=== PATIENT | female | born 1950 | race Caucasian/White ===

== ENCOUNTER 2018-12-03 14:53 | Emergency (ER) | payer OTHER ==
[~2018-12-03] VITALS: Ht 172.7 cm; Wt 86.2 kg
[2018-12-03] MEDS ORDERED: COZAAR50 MG (15:14)
== END 2018-12-03 19:59 | disposition home or self-care (01) ==
LOC: ER 14:53
DX: N39.0 Urinary tract infection, site not specified (principal)

== ENCOUNTER 2019-03-07 13:10 | Outpatient (CLI) | payer OTHER ==
[~2019-03-07 13:10] MED LIST: COZAAR50 MG
== END 2019-03-07 13:18 | disposition home or self-care (01) ==
LOC: MRI 13:10
DX: S83.203A Other tear of unspecified meniscus, current injury, right knee, initial encounter (principal)
CPT/HCPCS: 73721

== ENCOUNTER 2021-09-09 15:30 | Outpatient (CLI) | payer OTHER | END 2021-09-09 15:45 | disposition home or self-care (01) | LOC: PPH VACUNA 15:30 | PROVIDERS: ATTEND Emergency Medicine Pediatric Emergency Medicine | DX: Z23 Encounter for immunization (principal) ==

== ENCOUNTER 2024-11-04 20:39 | Emergency (ER) | payer OTHER ==
[~2024-11-04] VITALS: Ht 170.2 cm; Wt 81.6 kg
[2024-11-04] MEDS ORDERED: ONDANSETRON HCL 2 MG/ML VIAL ONE (21:29)
[2024-11-04] MEDS ORDERED: FAMOTIDINE/PF 20 MG/2 ML VIAL ONE (21:29)
[2024-11-04] MEDS ORDERED: 0.9 % SODIUM CHLORIDE 1,000 ML IV SCH (21:30)
[2024-11-04] MEDS ORDERED: FAMOTIDINE/PF 20 MG/2 ML VIAL IV PUSH ONE (21:30)
[2024-11-04] MEDS ORDERED: ONDANSETRON HCL 2 MG/ML VIAL IV ONE (21:30)
[2024-11-04 21:59] LABS: HEMOGLOBIN 13.3 g/dL (12.0-15.00); MEAN CELL VOLUME 90.8 fL (80.00-100.00); MEAN CORPUSCULAR HGB CONC 34.1 g/dl (32.0-36.0); PLATELET COUNT 247 K/uL (150-450); RED CELL DISTRIBUTION WIDTH 13.7 % (11.5-14.5)
[2024-11-04 22:25] LABS: BILIRUBIN TOTAL 0.67 mg/dL (0.3-1.2); CALCIUM 9.6 mg/dL (8.5-10.1); CREATININE SERUM 1.08 mg/dL (0.55-1.02); GFR 49.59; GLOBULINA 3.6 G/DL (2.4-3.5); TOTAL PROTEIN 7.6 gm/dL (6.4-8.2)
[2024-11-04 22:26] LABS: POTASSIUM 4.89 mEq/L (3.5-5.1)
[2024-11-05] MEDS ORDERED: METOCLOPRAMIDE HCL 10 MG in DEXTROSE 5 % IN WATER 50 ML IV ONE (00:15)
[2024-11-05 01:37] LABS: PH,URINE 5.5 (5.0-8.0); URINE APPEARANCE Clear; URINE BILIRRUBIN Negative (NEGATIVE); URINE BLOOD Trace; URINE COLOR Yellow; URINE GLUCOSE Negative (NEGATIVE); URINE KETONE Trace (NEGATIVE); URINE LEUKOCYTE Negative; URINE NITRATE Negative; URINE PROTEIN Negative (NEGATIVE)
[2024-11-05 01:44] LABS: URINE BACTERIA 23.2 uL (0.0-1933); URINE CAST 0.44 uL (0.0-1.40); URINE EPITHELIAL CELLS 4.1 uL (0.0-38.8); URINE RBC 7.9 uL (0.0-20.8); URINE WBC 4.5 uL (0.0-23.2)
[2024-11-05] MEDS ORDERED: PEPCID AC20 MG PO (01:44)
== END 2024-11-05 01:53 | disposition home or self-care (01) ==
LOC: ER 20:39
PROVIDERS: Emergency Medicine
DX: K29.70 Gastritis, unspecified, without bleeding (principal); R11.10 Vomiting, unspecified; Z20.822 Contact with and (suspected) exposure to COVID-19; I10 Essential (primary) hypertension; Z88.5 Allergy status to narcotic agent
CPT/HCPCS: 36415; 96365; 96366; 99282; J2405; J3490; J7030

== ENCOUNTER 2024-11-06 07:38 | Inpatient (IN) | payer OTHER ==
[~2024-11-06] VITALS: Ht 170.2 cm; Wt 79.4 kg
[~2024-11-06 07:38] MED LIST changes: +PEPCID AC20 MG PO
[2024-11-06] MEDS ORDERED: 0.9 % SODIUM CHLORIDE 1,000 ML IV SCH ×2 (09:30→18:00)
[2024-11-06] MEDS ORDERED: ONDANSETRON HCL 2 MG/ML VIAL IV ONE (09:30)
[2024-11-06 10:15] LABS: HEMATOCRIT 36.3 % (36.0-45.00); HEMOGLOBIN 12.9 g/dL (12.0-15.00); MEAN CELL VOLUME 87.3 fL (80.00-100.00); MEAN CORPUSCULAR HGB CONC 35.5 g/dl (32.0-36.0); PLATELET COUNT 180 K/uL (150-450); RED BLOOD COUNT 4.16 M/uL (4.00-6.00); RED CELL DISTRIBUTION WIDTH 13.8 % (11.5-14.5)
[2024-11-06 12:57] LABS: ALBUMIN 3.6 gm/dL (3.4-5.0); BILIRUBIN TOTAL 0.74 mg/dL (0.3-1.2); CALCIUM 9.3 mg/dL (8.5-10.1); CREATININE SERUM 1.18 mg/dL (0.55-1.02); GFR 44.77; GLOBULINA 3.6 G/DL (2.4-3.5); POTASSIUM 3.63 mEq/L (3.5-5.1); TOTAL PROTEIN 7.2 gm/dL (6.4-8.2)
[2024-11-06] MEDS ORDERED: TICAGRELOR 90 MG TABLET PO ONE ×2 (13:30→20:15)
[2024-11-06] MEDS ORDERED: NITROGLYCERIN IN 5 % DEXTROSE 250 ML IV SCH (15:45)
[2024-11-06] MEDS ORDERED: METOCLOPRAMIDE HCL 10 MG in 0.9 % SODIUM CHLORIDE 50 ML IV ONE (16:00)
[2024-11-06] MEDS ORDERED: LABETALOL HCL 20MG/4ML SYRINGE IV ONE (16:45)
[2024-11-06] MEDS ORDERED: METOPROLOL SUCCINATE 25 MG TAB.SR.24H PO ONE (18:30)
[2024-11-06 19:46] LABS: D DIMER 18.45 MG/L; INR 1.14; PARTIAL THROMBOPLASTIN TIME 28.8 SECONDS (22.0-34.0); PROTHROMBIN TIME 12.3 SECONDS (9.0-11.5)
[2024-11-06] MEDS ORDERED: ASPIRIN 325 MG TABLET.EC PO ONE (20:15)
[2024-11-06] MEDS ORDERED: ONDANSETRON HCL 4 MG in 0.9 % SODIUM CHLORIDE 50 ML IV PRN (20:15)
[2024-11-06] MEDS ORDERED: ACETAMINOPHEN 500 MG GEL..CAP PO PRN (20:15)
[2024-11-06] MEDS ORDERED: ENOXAPARIN SODIUM 80 MG/0.8 ML SYRINGE SUBCUTANEO SCH (21:00)
[2024-11-06 21:24] LABS: PH,URINE 5.5 (5.0-8.0); URINE APPEARANCE Clear; URINE BILIRRUBIN Negative (NEGATIVE); URINE BLOOD Large; URINE COLOR Dark Yellow; URINE GLUCOSE Negative (NEGATIVE); URINE LEUKOCYTE Trace; URINE NITRATE Negative
[2024-11-06 21:27] LABS: URINE EPITHELIAL CELLS 10.9 uL (0.0-38.8); URINE RBC 14.5 uL (0.0-20.8); URINE WBC 3.1 uL (0.0-23.2)
[2024-11-06 21:45] LABS: URINE BACTERIA 3.6 uL (0.0-1933); URINE CAST 0.73 uL (0.0-1.40); URINE KETONE 40 (NEGATIVE); URINE PROTEIN 300 (NEGATIVE)
[2024-11-06 23:24] VITALS: BP 105/59; O2SAT 95
[2024-11-07] VITALS (14 sets, daily range): BP systolic 82–131; BP diastolic 47–78; O2SAT 97–100
[2024-11-07] MEDS ORDERED: TICAGRELOR 90 MG TABLET PO SCH (05:00)
[2024-11-07] MEDS ORDERED: LOSARTAN POTASSIUM 25 MG TABLET PO SCH (09:00)
[2024-11-07] MEDS ORDERED: FAMOTIDINE/PF 20 MG in 0.9 % SODIUM CHLORIDE 8 ML IV PUSH SCH (09:00)
[2024-11-07] MEDS ORDERED: ASPIRIN 81 MG TAB.CHEW PO SCH (09:00)
[2024-11-07] MEDS ORDERED: METOPROLOL SUCCINATE 25 MG TAB.SR.24H PO SCH (09:00)
[2024-11-08 06:12] VITALS: BP 114/58; O2SAT 99
[2024-11-08 06:12] LABS: HEMATOCRIT 34.4 % (36.0-45.00); HEMOGLOBIN 11.6 g/dL (12.0-15.00); MEAN CELL VOLUME 89.8 fL (80.00-100.00); MEAN CORPUSCULAR HEMOGLOBIN 30.4 pg (27.00-32.0); MEAN CORPUSCULAR HGB CONC 33.8 g/dl (32.0-36.0); PLATELET COUNT 147 K/uL (150-450); RED BLOOD COUNT 3.83 M/uL (4.00-6.00); RED CELL DISTRIBUTION WIDTH 13.6 % (11.5-14.5)
[2024-11-08 07:12] LABS: ALBUMIN 2.6 gm/dL (3.4-5.0); BILIRUBIN TOTAL 0.54 mg/dL (0.3-1.2); CALCIUM 8.8 mg/dL (8.5-10.1); CREATININE SERUM 0.77 mg/dL (0.55-1.02); GFR 73.28; POTASSIUM 4.09 mEq/L (3.5-5.1); TOTAL PROTEIN 5.6 gm/dL (6.4-8.2)
[2024-11-08 08:36] VITALS: BP 113/50; O2SAT 96
[2024-11-08] MEDS ORDERED: ENOXAPARIN SODIUM 40 MG/0.4 ML SYRINGE SUBCUTANEO SCH (09:00)
[2024-11-08 10:21] VITALS: O2SAT 97
[2024-11-08 14:38] VITALS: O2SAT 98
[2024-11-08 14:55] VITALS: BP 116/61; O2SAT 98
[2024-11-08 18:13] VITALS: BP 124/60; O2SAT 97
[2024-11-08] MEDS ORDERED: LORazepam 0.5 MG TABLET PO SCH (21:00)
[2024-11-08] MEDS ORDERED: FAMOtidine 20 MG TABLET PO SCH (21:00)
[2024-11-09 02:08] VITALS: BP 115/57
[2024-11-09 08:00] VITALS: BP 114/57
[2024-11-09 19:45] VITALS: BP 103/69; O2SAT 96
[2024-11-10 04:06] VITALS: BP 108/68
[2024-11-10 09:18] VITALS: BP 132/78
[2024-11-10 19:01] VITALS: BP 120/76; O2SAT 97
[2024-11-11 01:55] VITALS: BP 114/76; O2SAT 95
[2024-11-11 07:00] VITALS: BP 127/71
[2024-11-11 07:47] LABS: HEMATOCRIT 26.6 % (36.0-45.00); HEMOGLOBIN 9.3 g/dL (12.0-15.00); MEAN CELL VOLUME 88.7 fL (80.00-100.00); PLATELET COUNT 237 K/uL (150-450); RED CELL DISTRIBUTION WIDTH 14.1 % (11.5-14.5)
[2024-11-11 08:07] LABS: ALBUMIN 2.4 gm/dL (3.4-5.0); BILIRUBIN TOTAL 0.73 mg/dL (0.3-1.2); CALCIUM 8.6 mg/dL (8.5-10.1); CREATININE SERUM 0.49 mg/dL (0.55-1.02); GFR 123.45; GLOBULINA 2.7 G/DL (2.4-3.5); POTASSIUM 4.08 mEq/L (3.5-5.1); TOTAL PROTEIN 5.1 gm/dL (6.4-8.2)
[2024-11-11 17:12] VITALS: BP 118/66; O2SAT 95
[2024-11-12 00:23] VITALS: BP 126/77
[2024-11-12 07:46] VITALS: BP 145/78; O2SAT 95
[2024-11-12] MEDS ORDERED: POLYETHYLENE GLYCOL 3350 17 GM BLIST.PACK PO STA (10:59)
[2024-11-12 17:24] VITALS: BP 133/75; O2SAT 96
[2024-11-12] MEDS ORDERED: POLYETHYLENE GLYCOL 3350 17 GM BLIST.PACK PO SCH (21:00)
[2024-11-13 01:22] VITALS: BP 149/68
[2024-11-13 06:33] LABS: HEMATOCRIT 26.6 % (36.0-45.00); MEAN CORPUSCULAR HEMOGLOBIN 30.4 pg (27.00-32.0); MEAN CORPUSCULAR HGB CONC 33.8 g/dl (32.0-36.0); PLATELET COUNT 388 K/uL (150-450); RED BLOOD COUNT 2.95 M/uL (4.00-6.00); RED CELL DISTRIBUTION WIDTH 14.1 % (11.5-14.5)
[2024-11-13 07:04] LABS: ALBUMIN 2.5 gm/dL (3.4-5.0); BILIRUBIN TOTAL 0.75 mg/dL (0.3-1.2); BILIRUBIN,CONJUGATED 0.17 mg/dL (0.0-0.2); BILIRUBIN,UNCONJUGATED 0.58 mg/dL (0.0-0.6); CALCIUM 8.8 mg/dL (8.5-10.1); CREATININE SERUM 0.45 mg/dL (0.55-1.02); GFR 136.2; POTASSIUM 4.03 mEq/L (3.5-5.1); TOTAL PROTEIN 5.1 gm/dL (6.4-8.2)
[2024-11-13 07:43] VITALS: BP 149/80; O2SAT 97
[2024-11-13 17:00] VITALS: BP 142/87
[2024-11-13] MEDS ORDERED: DOCUSATE SODIUM 100MG CAP PO SCH (17:00)
[2024-11-14] VITALS: BP 149/85; O2SAT 95
[2024-11-14 08:42] VITALS: BP 153/67; O2SAT 98
[2024-11-14] MEDS ORDERED: ACETAMINOPHEN 500 MG GEL..CAP PO PRN (16:00)
[2024-11-14 17:37] VITALS: BP 142/71
== END 2024-11-14 19:32 | disposition home or self-care (01) | DRG 558 ==
LOC: ER 07:38 → ICU-2 20:20 → MEDJ 11-08 08:27 → MEDI 11-10 14:49
PROVIDERS: Emergency Medicine; General Practice; Internal Medicine Geriatric Medicine; ADMIT Internal Medicine; ATTEND Internal Medicine
PROC: BW28ZZZ Computerized Tomography (CT Scan) of Head (ICD-10-PCS; 2024-11-06)
PROC: BW24YZZ Computerized Tomography (CT Scan) of Chest and Abdomen using Other Contrast (ICD-10-PCS; 2024-11-06)
PROC: B345ZZZ Ultrasonography of Bilateral Common Carotid Arteries (ICD-10-PCS; 2024-11-06)
PROC: B24BZZZ Ultrasonography of Heart with Aorta (ICD-10-PCS; 2024-11-06)
PROC: 4A12X4Z Monitoring of Cardiac Electrical Activity, External Approach (ICD-10-PCS; principal; 2024-11-08)
DX: M62.82 Rhabdomyolysis (principal); I45.19 Other right bundle-branch block; R55 Syncope and collapse; I65.21 Occlusion and stenosis of right carotid artery; E78.5 Hyperlipidemia, unspecified; E66.9 Obesity, unspecified; W13.3XXA Fall through floor, initial encounter; Y93.9 Activity, unspecified; I10 Essential (primary) hypertension; Y92.002 Bathroom of unspecified non-institutional (private) residence as the place of occurrence of the external cause